=== PATIENT | male | born 1995 | race Caucasian/White ===

== ENCOUNTER 2017-08-20 10:39 | Inpatient (IN) | payer BC, OTHER ==
[~2017-08-20] VITALS: Ht 180.3 cm; Wt 62.1 kg
[2017-08-20] MEDS ORDERED: BUPRENORPHINE HCL 2 MG TAB.SUBL SL PRN (11:30)
[2017-08-20] MEDS ORDERED: DICYCLOMINE HCL 20 MG TABLET PO PRN (11:30)
[2017-08-20] MEDS ORDERED: diphenhydrAMINE 50 MG CAPSULE PO PRN (11:30)
[2017-08-20] MEDS ORDERED: IBUPROFEN 600 MG TABLET PO PRN (11:30)
[2017-08-20] MEDS ORDERED: LOPERAMIDE HCL 2 MG CAPSULE PO PRN ×2 (11:30)
[2017-08-20] MEDS ORDERED: ONDANSETRON ODT 4 MG TAB.RAPDIS SL PRN (11:30)
[2017-08-20] MEDS ORDERED: MIRALAX 17 GM POWD.PACK PO PRN (11:30)
[2017-08-20] MEDS ORDERED: MAG HYDROX/AL HYDROX/SIMETH 30 ML LIQUID UDC PO PRN (11:30)
[2017-08-20] MEDS ORDERED: METHOCARBAMOL 750 MG TABLET PO PRN (11:30)
[2017-08-20] MEDS ORDERED: HYDROXYZINE PAMOATE 25 MG CAPSULE PO PRN (11:30)
[2017-08-20] MEDS ORDERED: ACETAMINOPHEN 325 MG TABLET PO PRN (11:30)
[2017-08-20] MEDS ORDERED: CLONIDINE HCL 0.1 MG TABLET PO PRN (11:30)
[2017-08-20] MEDS ORDERED: ONDANSETRON 4 MG/2 ML VIAL IM PRN (11:30)
[2017-08-20 12:00] VITALS: BP 130/66
--- NOTE | 2017-08-20 12:01 | NUR ---
Preadmission assessment Pt seen in intake, pt is AxOx4, pt states that he is being admitted "to get off of heroin, but I injected a suboxone this morning and it made me instantly sick." Pt states that he has no PMHx and NKA. VS are WNL. BP 130/66 HR 68 R 18 SpO2 98% on RA and a COWS 14. Dr Meza is aware and is going to see pt shortly. Pt refuses to give further medical and substance history at this time, states "I feel horrible, I just want to lay down". Pt is cleared to come to unit.
--- NOTE | 2017-08-20 12:02 | NUR ---
Admission Note Pt was admitted for opiate dependence. 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 Pt VS are: 130/66 HR 68 R 18 SpO2: 98% on RA T 98.4. Pt has a COWS of 14. Dr Meza is aware, pt educated that when he is able to provide urine, medication can be administered per protocol. Pt verbalized his understanding. Pt states that he does not have a PCP, denies any medical history, states that he hasn't been in detox or a hospital within the last 30 days. 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 Pt denies having any allergies. Pt denies any history of seizures. Pt denies any family medical history. pt states that he doesn't take any medications. Pt uses the following substances: heroin- 2-3G IV daily x 3-4 months, last use 08/19/17 at 1600, used a "small amount", has been using heroin on and off x 6 years. suboxone- pt states that he uses it "as needed when I am detoxing myself off of heroin", last used 08/20/17, injected 4mg, states that he immediately started precipitated withdrawal. I started vomiting, had diarrhea, body aches and felt like I was going to ". Methamphetamine- pt states that "I use a few sprinkles on the heroin when I inject it". Been using IV daily x 3-4 months, been using on and off x 6 years. Marijuana- pt states that he "smokes a hit every once in a while" doesn't remember the last use. Treatment history- Pt unable to recall names or places, states "I have been in detox about 6 or more times". Pt states that his longest period of sobriety was for 37 days "a few months ago". Pt oriented to unit, upon verification of medications and when pt is able to provide urine, will medication pt per MD order. Dr Meza has already placed orders and seen pt. Pt is in room, call light within reach, pt has no further complaints at this time. Will continue to monitor pt.
--- NOTE | 2017-08-20 12:03 | NUR ---
Reassessment Pt states that his pain level is 3/10 and that he is comfortable at this time. Will continue to monitor pt. Addendum: 08/20/17 at 1347 by ADELE OROZCO RN Time should be 1237
[2017-08-20] MEDS ORDERED: KETOROLAC TROMETHAMINE 30 MG INJ IM PRN (12:15)
[2017-08-20] MEDS: BUPRENORPHINE HCL 2 MG TAB.SUBL SL SCH ×3 (12:32→21:04)
--- NOTE | 2017-08-20 12:33 | NUR ---
PRN administration Pt c/o body aches 06/10. Administered PRN toradol to RD per MD order. Will continue to monitor pt.
[2017-08-20] MEDS ORDERED: LORAZEPAM 1 MG TABLET PO ONE (13:00)
--- NOTE | 2017-08-20 13:33 | NUR ---
Reassessment of onetime order Pt is currently sleeping, onetime ativan and scheduled subutex were effective in alleviating the discomfort of the pt.
[2017-08-20 14:14] LABS: *AMPHETAMINE, URINE POSITIVE (NEGATIVE); *BARBITURATE, URINE NEGATIVE (NEGATIVE); *CANNABINOID, URINE POSITIVE (NEGATIVE); *COCCAINE, URINE NEGATIVE (NEGATIVE); *OPIATE, URINE POSITIVE (NEGATIVE); *PHENCYCLIDINE SCREEN,URINE NEGATIVE (NEGATIVE)
[2017-08-20 16:00] VITALS: BP 119/44
--- NOTE | 2017-08-20 16:00 | NUR ---
COWS deferred/Pt refused labs COWS deferred, pt is sleeping, pt refused labs, when asked to provide labs, pt covered his head with blanket. Dr Meza notified. Will continue to encourage pt to provide labs.
--- NOTE | 2017-08-20 17:45 | NUR ---
Medication refusal. Pt refused subutex, states "I just want to sleep". Pt stated he would take next dose of subutex. Pt appears restless and uncomfortable, pt continues to state he wants to sleep and pulls blanket over head.
--- NOTE | 2017-08-20 18:48 | NUR ---
End of shift note Pt was admitted for opiate dependence. Pt denies any PMHx or allergies to any medications. Pt is a full code and on a regular diet. Pt refused 1700 dose of subutex d/t wanting to sleep. Pt had a onetime ativan and PRN toradol with effectiveness. Pt ate 50% of lunch and dinner. Pt has no further complaints at this time. Will continue to monitor pt. All needs addressed at this time. SBAR report endorsed to oncoming nurse.
--- NOTE | 2017-08-20 18:48 | NUR ---
START OF SHIFT NOTE: Patient is a 22 year old male admitted to [facility] for Opioid dependence, continue 5 Day Subutex Taper. Patient reports NKA, Regular Diet. Patient is on Full Code, and Fall Precautions. Patient denies Seizures History. PMH: Anxiety, Depression, Substance use History. Patient reports Substance use history: 1."Heroin use via IV 2-3 gram x3-4 months". Last used "1 gram on 08/19/2017 @1600". 2."Suboxone intermittent. Last used 4 mg via IV on 08/20/2017". 3."Methamphetamine - every day sprinkled on heroin via IV during last 3-4 months". 4. "Marijuana uses intermittently. Does not remember last use". VSWNL. COWS 9. Respirations is unlabored and even. Patient denies SOB and chest pain. Lungs Sounds are clear. Patient denies cough. Abdomen is soft, non-tender. Bowel Sounds active in all four quadrants. Skin is intact, warm, and dry to touch. Encouraged to fluids intake as tolerated. Encouraged to attend groups activities. All needs met. Safety measures in place: Call light within reach, bed in low position, and locked, padded rails up bilaterally. Patient endorsed by outgoing day shift nurse. Report received. Will continue to monitor closely.
[2017-08-20 20:00] VITALS: BP 125/69
[2017-08-21] VITALS: BP 118/54
[2017-08-21 04:00] VITALS: BP 94/61
--- NOTE | 2017-08-21 04:24 | NUR ---
PRN ROBAXIN 750 MG 1 TAB PO, PRN VISTARIL 25 MG 1 CAP PO ADMINISTRATION Patient c/o myalgia and increase anxiety. PRN Robaxin 750 mg 1 tab PO for myalgia and PRN Vistaril 25 mg 1 cap PO for anxiety administrated with full glass of water as ordered. Patient tolerated well. All needs met. Safety measures on place. Call light within reach, bed in lowest position and locked, padded rails up bilaterally rails up bilaterally. Will continue to monitor closely.
--- NOTE | 2017-08-21 05:24 | NUR ---
RE-ASSESSMENT Patient is sleeping. Respirations even and unlabored. RR:16. PRN Robaxin 750 mg 1 tab PO for myalgia and PRN Vistaril 25 mg 1 cap PO for anxiety were effective. All needs met. Safety measures on place. Call light within reach, bed in lowest position and locked, padded rails up bilaterally rails up bilaterally. Will continue to monitor closely.
--- NOTE | 2017-08-21 07:10 | NUR ---
END OF SHIFT NOTE: Patient is a 22 year old male admitted to [facility] for Opioid dependence, continue 5 Day Subutex Taper. Patient reports NKA, Regular Diet. Patient is on Full Code, and Fall Precautions. Patient denies Seizures History. PMH: Anxiety, Depression, Substance use History. Patient reports Substance use history: "Heroin use via IV 2-3 gram x3-4 months". Last used "1 gram on 08/19/2017 @1600". "Suboxone intermittent. Last used 4 mg via IV on 08/20/2017". "Methamphetamine - every day sprinkled on heroin via IV during last 3-4 months". "Marijuana uses intermittently. Does not remember last use". Last COWS 7 @0400. Patient presented with anxiety, agitation, nervousness, tremors that can be felt, nasal stuffy, moist eyes, sweating, and restlessness. VS @0400: T: 98.8, BP: 94/61, HR:80, RR:18, RA O2Sat: 98%. Pain level: "0/10". Patient denies SI/HI. Respirations unlabored and even. Skin is intact, warm and dry to touch. PRN Robaxin 750 mg 1 tab PO for myalgia and PRN Vistaril 25 mg 1 cap PO for anxiety administrated @0424 were effective. Patient slept 9 hours, intake 473 ml, voided X1. Encourage fluids as tolerated. Encourage to attend activities groups. All needs met. Safety measures on place. Call light within reach, bed in lowest position and locked, padded rails up bilaterally. Patient endorsed to day shift nurse.
--- NOTE | 2017-08-21 07:15 | NUR ---
Start of Shift Endorsement received from nightshift nurse. Pt is a 22 y/o male admitted for Opiate dependence. Pt is on a 5 day Subutex taper. Pt is tolerating the taper and moderately withdrawing AEB COS 5. Pt reports sleeping 9 hours. PT received PRN Robaxin and Vistaril. VS WNL. Full Code. PT is alert and oriented x4. Pt is in STABLE condition at this time. Remains compliant with medication and diet regimen. All needs have been met, All safety measures in place per hospital policy. Bed in lowest position, side rails up x2, call-light within reach. Will continue to monitor
[2017-08-21 08:00] VITALS: BP 106/50
[2017-08-21] MEDS ORDERED: TUBERCULIN,PURIF.PROT.DERIV. 5 TU/0.1 ML TEST ID ONE (09:00)
[2017-08-21] MEDS: BUPRENORPHINE HCL 2 MG TAB.SUBL SL SCH ×3 (09:04→20:35)
[2017-08-21 12:00] VITALS: BP 102/61
[2017-08-21] MEDS ORDERED: BUPRENORPHINE HCL 2 MG TAB.SUBL SL ONE (12:15)
[2017-08-21 15:01] LABS: BASOPHILS # (AUTO) 0.1 K/uL (0.0-8.0); BASOPHILS % (AUTO) 0.9 % (0.0-2.0); EOSINOPHILS # (AUTO) 0.1 K/uL (0.0-0.7); EOSINOPHILS % (AUTO) 1.7 % (0.0-7.0); HEMATOCRIT 41.8 % (40-50); HEMOGLOBIN 13.7 G/DL (14.0-18.0); LYMPHOCYTES # (AUTO) 2.2 K/UL (0.8-4.8); LYMPHOCYTES % (AUTO) 38.1 % (20.5-74.5); MEAN CORPUSCULAR HEMOGLOBIN 27.4 UUG (27.0-31.0); MEAN CORPUSCULAR HGB CONC 33 g/dL (32.0-37.0); MEAN CORPUSCULAR VOLUME 83.3 FL (82.0-92.0); MONOCYTES # (AUTO) 0.5 K/UL (0.1-1.30); MONOCYTES % (AUTO) 8.4 % (0-11); NEUTROPHILS # (AUTO) 2.9 K/UL (1.8-8.9); NEUTROPHILS % (AUTO) 50.9 % (31.5-64.5); PLATELET COUNT (AUTO) 238 K/UL (150-450); RED BLOOD CELL COUNT(AUTO) 5.02 MIL/UL (4.7-6.1); WHITE BLOOD COUNT (AUTO) 5.8 K/UL (4.0-11.2)
[2017-08-21 15:07] LABS: ALANINE AMINOTRANSFERASE 20 U/L (16-63); ALKALINE PHOSPHATASE 79 U/L (50-136); ASPARTATE AMINOTRANSFERASE 14 U/L (15-37); BILIRUBIN,TOTAL 0.3 mg/dL (0.2-1.0); CARBON DIOXIDE 30 mmol/L (21-32); CHLORIDE 106 mmol/L (98-107); CREATININE 1.2 mg/dL (0.6-1.3); GLUCOSE 91 mg/dL (74-106); MAGNESIUM 1.9 mg/dL (1.8-2.4); POTASSIUM 3.5 mmol/L (3.5-5.1); TOTAL PROTEIN, SERUM 6.8 g/dL (6.4-8.2); UREA NITROGEN, BLOOD 12 mg/dL (7-18)
[2017-08-21 15:31] LABS: ETHANOL < 3 MG/DL (0-0)
[2017-08-21 16:00] VITALS: BP 115/68
--- NOTE | 2017-08-21 19:09 | NUR ---
End of shift Endorsement given to nightshift nurse. Pt is a 22 y/o male admitted for Opiate dependence. Pt is on a 5 day Subutex taper. Pt is tolerating the taper and mildly withdrawing AEB COWS 4. Pt participated in groups but did not participate in any activities. PT received one time order of Subutex 4mg per Dr. Meza. PT did not receive any PRN medications. VS WNL. Full Code. PT is alert and oriented x4. Educated pt on deep breathing technique. Pt is in STABLE condition at this time. Remains compliant with medication and diet regimen. All needs have been met, All safety measures in place per hospital policy. Bed in lowest position, side rails up x2, call-light within reach. Will continue to monitor
--- NOTE | 2017-08-21 19:09 | NUR ---
START OF SHIFT NOTE: Patient is a 22 year old male admitted to [facility] for Opioid dependence, continue 5 Day Subutex Taper. Patient reports NKA, Regular Diet. Patient is on Full Code, and Fall Precautions. Patient denies Seizures History. PMH: Anxiety, Depression, Substance use History. Patient is alert and oriented x4, speech is soft and clear. Patient is cooperative. VSWNL. COWS 7. Respirations is unlabored and even. Patient denies SOB and chest pain. Lungs Sounds are clear. Patient denies cough. Abdomen is soft, non-tender. Bowel Sounds active in all four quadrants. Skin is intact, warm, and dry to touch. Encouraged to fluids intake as tolerated. Encouraged to attend groups activities. All needs met. Safety measures in place: Call light within reach, bed in low position, and locked, padded rails up bilaterally. Patient endorsed by outgoing day shift nurse. Report received. Will continue to monitor closely.
[2017-08-21 20:00] VITALS: BP 122/60
[2017-08-21] MEDS ORDERED: LORAZEPAM 1 MG TABLET PO PRN (21:00)
[2017-08-21] MEDS ORDERED: LORAZEPAM 1 MG TABLET PO ONE (21:00)
[2017-08-21] MEDS ORDERED: LORAZEPAM 1 MG TABLET ONE (21:13)
[2017-08-22] VITALS: BP 103/62
[2017-08-22 04:00] VITALS: BP 101/60
--- NOTE | 2017-08-22 07:07 | NUR ---
END OF SHIFT NOTE: Patient is a 22 year old male admitted to [facility] for Opioid dependence, continue 5 Day Subutex Taper. Patient reports NKA, Regular Diet. Patient is on Full Code, and Fall Precautions. Patient denies Seizures History. PMH: Anxiety, Depression, Substance use History. Last COWS 3 @0400. COWS taken when patient was alert during the night. VS @0400: T: 97.9, BP: 101/60, HR:63, RR:16, RA O2Sat: 100%. Pain level: "0/10". Patient denies SI/HI. Respirations unlabored and even. Skin is intact, warm and dry to touch. No PRN Medications administrated . Patient slept 7 hours, intake 1000 ml, voided X1. Encourage fluids as tolerated. Encourage to attend activities groups. All needs met. Safety measures on place. Call light within reach, bed in lowest position and locked, padded rails up bilaterally. Patient endorsed to day shift nurse.
--- NOTE | 2017-08-22 07:30 | NUR ---
Start of shift note; Received report from night nurse. Patient is a 22 year old male admitted on 08/20/17 for Opiate and Methamphetamine dependence. Patient was placed on a 5 day Subutex taper, no adverse reactions noted. Patient denies any past medical history. Patient has NKA, on full code status. Patient's last COWS score is 3 at 2100. Patient had an uneventful night. Patient is on fall and seizure precaution. Bed in lowest position, call light within reach. Will continue to monitor patient.
[2017-08-22 08:00] VITALS: BP 104/65
[2017-08-22] MEDS ORDERED: GABAPENTIN 300 MG CAPSULE PO SCH (09:00)
[2017-08-22] MEDS ORDERED: BUPRENORPHINE HCL 2 MG TAB.SUBL SL SCH (09:00)
[2017-08-22 09:06] LABS: HEPATITIS B SURFACE AG Negative (Negative)
[2017-08-22 12:00] VITALS: BP 128/72
--- NOTE | 2017-08-22 14:17 | NUR ---
Assumed care of patient
--- NOTE | 2017-08-22 14:17 | NUR ---
Endorsement; Patient is AOX4. Patient remained compliant with treatment plan and medication regime. Medications were effective in reducing withdrawal symptoms. Patient's last COWS score is 5 at 1200. Report given to covering RN.
[2017-08-22] MEDS: GABAPENTIN 400 MG CAPSULE PO SCH ×3 (14:22→21:32)
[2017-08-22] MEDS: BACLOFEN 10 MG TABLET PO SCH ×3 (14:22→21:32)
[2017-08-22] MEDS: BUPRENORPHINE HCL 2 MG TAB.SUBL SL SCH ×2 (14:23→21:32)
--- NOTE | 2017-08-22 14:27 | NUR ---
VSS COWS 4 c/o body aches
[2017-08-22 16:00] VITALS: BP 128/72
--- NOTE | 2017-08-22 18:29 | NUR ---
END OF SHIFT NOTE: Report given to warehouse supervisor 3rd shift nurse. Patient is a 22 year old male admitted on 08/20/17 for Opiate and Methamphetamine dependence. Patient was placed on a 5 day Subutex taper, no adverse reactions noted. Patient denies any past medical history. Patient has NKA, on full code status. Patient's last COWS score is 4 at 1500. Patient had an uneventful night. Patient is on fall and seizure precaution. Bed in lowest position, call light within reach.
--- NOTE | 2017-08-22 19:30 | NUR ---
Start of shift Patient is a 22 year old male admitted on 08-20-17 for opiate detox. Patient is a full code on a regular diet, with NKA. Patient is on fall precautions. His vital signs have remained stable Last COWS 4. Remains on 5 day Subutex taper. Sleeping at change of shift. No complaints offered. Safety measures in place. Call light within reach. Report received from AM shift nurse.
[2017-08-22 20:00] VITALS: BP 101/60
[2017-08-22] MEDS: CLONIDINE HCL 0.1 MG TABLET PO SCH (21:00)
--- NOTE | 2017-08-22 21:35 | NUR ---
Medication Refusal Patient refused baclofen 10 mg , and Neurontin 400 mg at 2100.States he only wants his Subutex. Educated patient on reasons for medications. Patient adamantly refused. Clonidine 0.1 mg PO at 2100 held for BP 101/60.
[2017-08-23] VITALS: BP 104/58
--- NOTE | 2017-08-23 | NUR ---
COWS DEFERRED 0000 COWS deferred for sleep
--- NOTE | 2017-08-23 04:17 | NUR ---
VITAL SIGNS REFUSED. COWS DEFERRED 0400 vital signs refused. COWS deferred patient resting in bed, eyes closed, breathing even and unlabored. Respirations 16.
--- NOTE | 2017-08-23 06:53 | NUR ---
End of shift Patient is a 22 year old male admitted on 08-20-17 for opiate detox. Patient is a full code on a regular diet, with NKA. Patient is on fall precautions. Remains on 5 day Subutex taper. Vital signs at 2000 BP 101/60, P 74, R 18, T 98.1, SPO2 99% on RA. COWS 3. Patient refused Baclofen 10 mg PO at 2100 as well as Neurontin 400 mg PO at 2100. States he is only taking his Subutex, despite education. Patient clonidine 0.1 mg PO held at 2100 for BP. Vital signs at 0000 BP 104/58, P 70, R 16, SPO2 99% on RA, T 98.1. COWS deferred for sleep. Patient slept a total of 7 hours. Intake 1038 ml Output 3 voids. Call light within reach. Report given to AM shift nurse.
[2017-08-23 08:00] VITALS: BP 134/67
--- NOTE | 2017-08-23 08:05 | NUR ---
START OF SHIFT NOTE Received report from night nurse, 22 year old male admitted for Opiate and Methamphetamine dependence. Patient cont on a 5 day Subutex. Patient denies any PMH. Per endorsement Pt refused his scheduled Baclofen gabapentin, and Clonidine was held, slept for 7 hours, last COWS was 3. Patient received awake, alert and oriented x4, Educated patient regarding plan of care for the day and medication regimen with good verbal understanding. Safety measures in place. call light with in reach, will continue to monitor.
[2017-08-23] MEDS: BACLOFEN 10 MG TABLET PO SCH ×3 (09:00→20:01)
[2017-08-23] MEDS: GABAPENTIN 400 MG CAPSULE PO SCH ×3 (09:00→20:02)
[2017-08-23] MEDS: CLONIDINE HCL 0.1 MG TABLET PO SCH ×2 (09:00→20:01)
--- NOTE | 2017-08-23 09:00 | NUR ---
REFUSED CLONIDINE/BACLOFEN/GABAPENTIN Patient refused baclofen 10 mg , and Neurontin 400 mg,Clonidine 0.1mg Po. Educated patient on reasons for medications and offered x. Risk and benefits explained, but Patient refused, MD notified.
[2017-08-23] MEDS: BUPRENORPHINE HCL 2 MG TAB.SUBL SL SCH ×3 (09:13→20:00)
[2017-08-23 12:00] VITALS: BP 104/74
[2017-08-23 16:00] VITALS: BP 116/62
--- NOTE | 2017-08-23 19:00 | NUR ---
END OF SHIFT NOTE Patient is alert oriented x4. 22 year old male admitted for Opiate and Methamphetamine dependence. Patient cont on a 5 day Subutex tolerating well. Patient refused his scheduled Clonidine, Gabapentin, Baclofen morning and at afternoon baclofen/gabapentin offered x3 risk and benefits explained pt verbalized understanding. MD notified. Patient did not receive any PRN during shift. Skin intact warm and dry to touch. Last COWS score was 4. Encourage Po fluids as tolerated. All safety measures in place, Call light within reach. Patient endorsed to night nurse in stable condition.
[2017-08-23 20:04] VITALS: BP_SYST 110; BP_DIAS 56; BP_DIAS 60
--- NOTE | 2017-08-23 20:41 | NUR ---
Start of shift Patient is a 22 year old male admitted on 08-20-17 for opiate detox. Patient is a full code on a regular diet, with NKA. Patient is on fall precautions. His vital signs have remained stable Last COWS 4 at 1600 . Remains on 5 day Subutex taper. No complaints offered. Safety measures in place. Call light within reach. Report received from AM shift nurse.
--- NOTE | 2017-08-23 21:00 | NUR ---
Medication Refusal Patient refused baclofen 10 mg , Neurontin 400 mg, and clonidine 0.1 mg at 2100. States he only wants his Subutex. Educated patient on reasons for medications. Patient adamantly refused.
--- NOTE | 2017-08-24 | NUR ---
COWS deferred/VS refused Patient refused 0000 vital signs. COWS deferred due to sleep
--- NOTE | 2017-08-24 04:00 | NUR ---
COWS deferred/VS refused Patient refused 0400 vital signs. COWS deferred due to sleep
--- NOTE | 2017-08-24 06:52 | NUR ---
End of shift Patient is a 22 year old male admitted on 08-20-17 for opiate detox. Patient is a full code on a regular diet, with NKA. Patient is on fall precautions. He remains on a 5 day Subutex taper. Vital signs at 1999 BP BP 110/60, P 81, R 18, SPO2 98% on RA, T 98.1. COWS 5. Patient refused Baclofen 10 mg PO at 2100, Neurontin 400 mg PO at 2100, and Clonidine 0.1 mg PO at 2100. States he is only taking his Subutex, despite education. Patient refused 0000 and 0400 VS, COWS deferred for sleep. Patient slept a total of 6 hours. Intake 855 ml Output 2 voids. Call light within reach. Report given to AM shift nurse.
--- NOTE | 2017-08-24 06:54 | NUR ---
End of shift Patient is a 61 year old female admitted on 08-19-17 for Alcohol detox. Patient has PMH of HTN. She has NKA, is a full code and on a regular diet. She is on fall and seizure precautions. She is on a 5 day Ativan taper. Tolerating diet and fluids. CIWA 2 at 1999. Vital signs at 1999 BP 139/99, P 94, SPO2 97% RA, T 98.0, R 16. Patient received citrate of magnesium 296 ml at 2054 for constipation with no effect as of late. Patient received Benadryl 50 mg PO at 2051 with good effect. Patient received Motrin 400 mg PO at 2300 for generalized pain with good effect. VS at 0000 BP98/63, P 80, R 13, SPO2 96% on RA, T 98.3 CIWA deferred for sleep. 0400 VS BP 110/68, P 68, R 16, SPO2 96% on RA CIWA deferred for sleep. Patient slept a total of 7 hours, Intake 1800 ml output 3 voids. Safety measures in place. Side rails up x 2. Call light within reach. Bed Locked and in lowest position. Report given to AM shift nurse. Addendum: 08/24/17 at 0656 by HAZEL EM RN documented in wrong chart
--- NOTE | 2017-08-24 07:33 | NUR ---
START OF SHIFT NOTE Received report from night nurse, 22 year old male admitted for Opiate and Methamphetamine dependence. Patient cont on a 5 day Subutex. Patient denies any PMH. Per endorsement Pt refused his scheduled Baclofen gabapentin, and Clonidine, slept for 6 hours, last COWS was 5. Patient received awake, alert and oriented x4, Educated patient regarding plan of care for the day and medication regimen with good verbal understanding. Safety measures in place. call light with in reach, will continue to monitor.
[2017-08-24 08:00] VITALS: BP 115/66
[2017-08-24] MEDS: GABAPENTIN 300 MG CAPSULE PO SCH ×2 (08:26→14:03)
[2017-08-24] MEDS ORDERED: BUPRENORPHINE HCL 2 MG TAB.SUBL SL SCH (09:00)
[2017-08-24 12:00] VITALS: BP 128/60
[2017-08-24 16:00] VITALS: BP 122/76
[2017-08-24] MEDS ORDERED: METH-406 PO (16:24)
[2017-08-24] MEDS ORDERED: HYDR-3895 PO (16:24)
[2017-08-24] MEDS ORDERED: DICY20TA28 PO (16:24)
[2017-08-24] MEDS ORDERED: DIPH50CA37 PO (16:24)
[2017-08-24] MEDS ORDERED: IBUP-1955 PO (16:24)
--- NOTE | 2017-08-24 18:59 | NUR ---
END OF SHIFT NOTE Patient is alert oriented x4. 22 year old male admitted for Opiate and Methamphetamine dependence. Patient cont on a 5 day Subutex tolerating well. Patient refused his scheduled Clonidine,Gabapentin, Baclofen morning and at afternoon gabapentin offered x3 risk and benefits explained pt verbalized understanding. MD notified. Patient did not receive any PRN during shift. Skin intact warm and dry to touch. Last COWS score was 3. Patient scheduled for discharge in AM. Encourage Po fluids as tolerated. All safety measures in place, Call light within reach. Patient endorsed to night nurse in stable condition. Addendum: 08/24/17 at 1907 by LINDA GREENFIELD LVN ERROR PT completed his 5 days Subutex taper.
[2017-08-24 20:00] VITALS: BP 112/60
--- NOTE | 2017-08-24 20:00 | NUR ---
Start of Shift Pt is a 22 year old male admitted for Opiate dependence, placed on 5 Subutex taper, completed. Pt denies any past medication history. Pt reported consuming [place] IV 2-3g daily and Suboxone intermittently. Pt also reported use of Methamphetamine and Marijuana. NKA, regular diet, fall precautions and full code. Upon assessment, pt reports mild body aches, respirations even/unlabored, denies SOB/chest pain, denies n/v/d. Pt is scheduled for discharge tomorrow. Safety measures in place, call light within reach, side rails up x2, bed locked and in low position. Will continue to monitor.
--- NOTE | 2017-08-25 | NUR ---
Pt refused to be woken up for 0000 VS assessment. COWS deferred due to pt sleeping, to assess while pt is awake as ordered. Safety measures in place. Will continue to monitor.
--- NOTE | 2017-08-25 04:00 | NUR ---
Pt refused to be woken up for 0400 VS assessment. COWS deferred due to pt sleeping, to assess while pt is awake as ordered. Safety measures in place. Will continue to monitor. 0
--- NOTE | 2017-08-25 07:00 | NUR ---
End of Shift Pt is a 22 year old male admitted for Opiate dependence, placed on 5 Subutex taper, completed. Pt denies any past medication history. Pt reported consuming [place] IV 2-3g daily and Suboxone intermittently. Pt also reported use of Methamphetamine and Marijuana. NKA, regular diet, fall precautions and full code. During shift, No medications administered, or requested by pt. Latest COWS 1. Pt slept for 8 hours, intake of 1000 ml PO, voids x2 and stool x0. Pt is scheduled for discharge today. Safety measures in place, call light within reach, side rails up x2, bed locked and in low position. Endorsed to day shift nurse.
--- NOTE | 2017-08-25 07:38 | NUR ---
START OF SHIFT NOTE: Received report from weight shifter nurse. Pt is a 22 year old male admitted for Opiate dependence, placed on 5 Subutex taper, completed. To be discharged this AM. Pt is alert and oriented X4. Color good, skin warm and dry. Resprations even and unlabored. Safety precautions observed. Call light within reach.
[2017-08-25 08:40] VITALS: BP 122/78
--- NOTE | 2017-08-25 08:47 | NUR ---
Discharge papers signed. No home meds.
--- NOTE | 2017-08-25 09:33 | NUR ---
Pt discharged in stable condition with all valuables and belongings. No home meds. Denies SI/HI. To Able to Change via [employer] private car.
== END 2017-08-25 09:33 | disposition other institution (70) | DRG 895 ==
LOC: SRC 11:23
PROVIDERS: ADMIT Internal Medicine; ATTEND Internal Medicine
PROC: HZ2ZZZZ Detoxification Services for Substance Abuse Treatment (ICD-10-PCS; principal; 2017-08-20)
PROC: HZ31ZZZ Individual Counseling for Substance Abuse Treatment, Behavioral (ICD-10-PCS; 2017-08-23)
DX: F11.23 Opioid dependence with withdrawal (principal); D64.9 Anemia, unspecified; F12.10 Cannabis abuse, uncomplicated; F17.210 Nicotine dependence, cigarettes, uncomplicated; F41.9 Anxiety disorder, unspecified; F15.23 Other stimulant dependence with withdrawal; Z59.1 Inadequate housing; F32.9 Major depressive disorder, single episode, unspecified
CPT/HCPCS: 36415; 80307; 80324; 80349; 80361; 83735; 85025; 86592; 86705; 86803; 87340; 87806; A4663; G0480; J1885

== ENCOUNTER 2017-09-24 23:19 | Inpatient (IN) | payer BC, OTHER ==
[~2017-09-24] VITALS: Ht 182.9 cm; Wt 59.0 kg
[~2017-09-24 23:19] MED LIST: DICY20TA28 PO; DIPH50CA37 PO; HYDR-3895 PO; IBUP-1955 PO; METH-406 PO
[2017-09-25] MEDS ORDERED: ONDANSETRON ODT 4 MG TAB.RAPDIS SL PRN (00:15)
[2017-09-25] MEDS ORDERED: LORAZEPAM 1 MG TABLET PO PRN (00:15)
[2017-09-25] MEDS ORDERED: MIRALAX 17 GM POWD.PACK PO PRN (00:15)
[2017-09-25] MEDS ORDERED: IBUPROFEN 600 MG TABLET PO PRN (00:15)
[2017-09-25] MEDS ORDERED: CLONIDINE HCL 0.1 MG TABLET PO PRN (00:15)
[2017-09-25] MEDS ORDERED: ONDANSETRON 4 MG/2 ML VIAL IM PRN (00:15)
[2017-09-25] MEDS ORDERED: BUPRENORPHINE HCL 2 MG TAB.SUBL SL PRN (00:15)
[2017-09-25] MEDS ORDERED: LOPERAMIDE HCL 2 MG CAPSULE PO PRN ×2 (00:15)
[2017-09-25] MEDS ORDERED: DICYCLOMINE HCL 20 MG TABLET PO PRN (00:15)
[2017-09-25] MEDS ORDERED: MAGNESIUM HYDROXIDE 30 ML LIQUID UDC PO PRN (00:15)
[2017-09-25] MEDS ORDERED: METHOCARBAMOL 750 MG TABLET PO PRN (00:15)
[2017-09-25] MEDS ORDERED: ACETAMINOPHEN 325 MG TABLET PO PRN (00:15)
--- NOTE | 2017-09-25 00:25 | NUR ---
Pre-Admission Pt is a 22 y/o male, seen at intake, AAOx4, no SOB with anxiety noted at this time. Discussed with patient the admission policies of the unit. Patient is coherent and able to respond to questions appropriately. Pt is ambulatory with steady gait. Vital signs taken and as follows: BP: 120/57, P: 85, R: 17, O2: 97%, T: 98, PA: 0. Pt verbalized understanding of instructions and teachings regarding disposal of narcotic and other controlled home medications, unit protocols such as taking of vital signs Q4H and handling and disposal of contraband. Will continue with admission upon pts arrival on the unit.
[2017-09-25 00:37] VITALS: BP 120/57
--- NOTE | 2017-09-25 00:37 | NUR ---
Admission Note Pt is a 22 y/o male admitted on 09/25/17 for Opiate dependence, arrived on the unit at 0037. Pt has NKA, denies history of seizures. Pt was able to provide UDS. Upon admission COWS 4, BP: 120/57, P: 85, R: 17, O2: 97%, T: 98, PA: 0. Weight 130, height 60. Pt reports he does not have a PCP, smokes 1 pack daily, denies being hospitalized within past 30 days. Pt is able to understand and respond to all questions pertaining to his hospitalization. Substance Abuse History is as follows: 1. Heroin IV 2-6g/daily, last intake of 0.5g on 09/24/17, at this rate for 8 weeks, has been using since age 15. 2. Marijuana 1-2g/daily, last intake of 1 bowl on 09/24/2017, at this rate for 8 weeks, has been using since age 15. Pt relapsed 8 weeks ago after discharge from [facility] on August 20, 2017. Pt reports he relapsed "as soon as I got out of here". Pts longest sober period for 87 days in 2017, per pt. Pt reports "my father is an alcoholic, but I don't talk to him" Pt denies any other family history of substance abuse. PMH: Anxiety, depression. Pt denies any hx of seizures. Pt did not bring any medications from home. Upon assessment, pt is AAOx4, pt is mildly intoxicated, presents with anxiety, skin is flushed, and has mild body aches. Respirations even and unlabored. Denies SOB, chest pain, N/V/D. Bowel sounds active x 4, abdomen soft. PERRLA. Track keyshawn noted on right elbow area, skin is otherwise intact, no open wounds noted. Pt denies SI/HI. Educational information provided and left at bedside. Pt oriented to room and encouraged to notify staff with any concerns. Safety measures in place. Call light within reach, side rails up x 2, bed locked and in low position. Will continue to monitor.
[2017-09-25] MEDS ORDERED: LORAZEPAM 1 MG TABLET PO ONE (01:15)
[2017-09-25 01:49] LABS: BASOPHILS # (AUTO) 0.1 K/uL (0.0-8.0); BASOPHILS % (AUTO) 1.5 % (0.0-2.0); EOSINOPHILS # (AUTO) 0.2 K/uL (0.0-0.7); HEMATOCRIT 44.1 % (40-50); HEMOGLOBIN 14.9 G/DL (14.0-18.0); LYMPHOCYTES # (AUTO) 2.1 K/UL (0.8-4.8); LYMPHOCYTES % (AUTO) 23.5 % (20.5-74.5); MEAN CORPUSCULAR HEMOGLOBIN 28.4 UUG (27.0-31.0); MEAN CORPUSCULAR HGB CONC 34 g/dL (32.0-37.0); MONOCYTES # (AUTO) 0.6 K/UL (0.1-1.30); MONOCYTES % (AUTO) 6.8 % (0-11); NEUTROPHILS % (AUTO) 66.2 % (31.5-64.5); PLATELET COUNT (AUTO) 308 K/UL (150-450); RED BLOOD CELL COUNT(AUTO) 5.25 MIL/UL (4.7-6.1)
[2017-09-25 01:56] LABS: ETHANOL < 3 MG/DL (0-0)
[2017-09-25 02:01] LABS: ALANINE AMINOTRANSFERASE 38 U/L (16-63); ALKALINE PHOSPHATASE 101 U/L (50-136); ASPARTATE AMINOTRANSFERASE 26 U/L (15-37); BILIRUBIN,TOTAL 0.3 mg/dL (0.2-1.0); CARBON DIOXIDE 30 mmol/L (21-32); CHLORIDE 101 mmol/L (98-107); CREATININE 0.8 mg/dL (0.6-1.3); GLUCOSE 100 mg/dL (74-106); MAGNESIUM 2.1 mg/dL (1.8-2.4); TOTAL PROTEIN, SERUM 7.8 g/dL (6.4-8.2); UREA NITROGEN, BLOOD 15 mg/dL (7-18)
[2017-09-25] MEDS ORDERED: LORAZEPAM 1 MG TABLET ONE (02:04)
[2017-09-25 02:11] LABS: *AMPHETAMINE, URINE NEGATIVE (NEGATIVE); *BARBITURATE, URINE NEGATIVE (NEGATIVE); *CANNABINOID, URINE POSITIVE (NEGATIVE); *COCCAINE, URINE NEGATIVE (NEGATIVE); *OPIATE, URINE POSITIVE (NEGATIVE); *PHENCYCLIDINE SCREEN,URINE NEGATIVE (NEGATIVE)
--- NOTE | 2017-09-25 02:16 | NUR ---
PRN Administration Ativan 2mg x1 administered for anxiety as ordered. Safety measures in place, will continue to monitor.
--- NOTE | 2017-09-25 03:16 | NUR ---
PRN Reassessment Upon reassessment, pt is in bed, sleeping, respirations even/unlabored. Safety measures in place, will continue to monitor.
[2017-09-25 04:00] VITALS: BP 126/59
--- NOTE | 2017-09-25 04:00 | NUR ---
COWS deferred d/t pt sleeping, to asses while pt is awake as ordered. BP 126/59, pulse 68, resp 18, SpO2 97% room air, temp 98.1, no pain 0/[address], will continue to monitor.
--- NOTE | 2017-09-25 07:00 | NUR ---
End of Shift Pt is a 22 year old male admitted for Opiate dependence. Pt reported using Heroin IV 2-6g/daily for the past 8 weeks and Marijuana 1-2g/daily for the past 8 weeks. PMH: anxiety and depression. NKA, regular diet, fall precautions and full code. During shift, COWS 4, Ativan 2mg x1 administered for anxiety as ordered. No other PRN medications administered during shift. Pt slept for 5 hours, intake of 500 ml PO, voids x1 and stool x0. Safety measures in place, call light within reach, side rails up x2, bed locked and in low position. Endorsed to day shift nurse.
--- NOTE | 2017-09-25 07:35 | NUR ---
START OF SHIFT NOTE: Received report from shift superintendent caustic cresylate nurse. Pt is a 22 year old male admitted 09-25-17 for Opiate dependence. Pt on prn's only. Pt is alert and oriented X4. Color good, skin warm and dry. Respirations even and unlabored. Safety precautions observed. Vall light within reach. Will continue to monitor.
[2017-09-25 08:18] VITALS: BP 126/59
[2017-09-25 12:00] VITALS: BP 122/72
--- NOTE | 2017-09-25 12:22 | NUR ---
Pt woke up stating "I'm so sick" COWS 14. Subutex 4mg sl prn given
--- NOTE | 2017-09-25 13:09 | NUR ---
Pt states "I still feel sick" after Subutex prn
--- NOTE | 2017-09-25 13:25 | NUR ---
Robaxin 750mg po prn and Clonidine 0.1mg for muscle aches and anxiety
[2017-09-25] MEDS: BUPRENORPHINE HCL 2 MG TAB.SUBL SL SCH ×2 (14:01→21:18)
[2017-09-25] MEDS: GABAPENTIN 300 MG CAPSULE PO SCH ×2 (14:01→21:17)
--- NOTE | 2017-09-25 14:03 | NUR ---
VSS COWS 6 states feels improved after Robaxin and Clonidine prn
[2017-09-25 17:05] VITALS: BP 122/72
--- NOTE | 2017-09-25 18:27 | NUR ---
END OF SHIFT NOTE: Report given to shift stacker nurse. Pt is a 22 year old male admitted 09-25-17 for Opiate dependence. Pt placed on 5 day Subutex taper. Pt is alert and oriented X4. Color good, skin warm and dry. Respirations even and unlabored. Vital signs have remained stable throughout shift. Pt received Robaxin 750mg po prn and Clonidine 0.1mg po prn @ 1325. Last COWS 6 @ 1500. Safety precautions observed. Call light within reach.
--- NOTE | 2017-09-25 19:15 | NUR ---
START OF SHIFT NOTE : Pt. is a 22 year old male admitted 09-25-17 for Opiate dependence. Pt placed on 5 day Subutex taper on 09/25/2017. Pt is alert and oriented X4. Color good, skin warm and dry. Respirations even and unlabored. Safety measures in place : bed on lowest position with side rails x2 up for safety, call light within reach. Will continue to monitor closely and offer help.
[2017-09-25 20:00] VITALS: BP 119/72
--- NOTE | 2017-09-25 21:00 | NUR ---
PRN BENADRYL , VISTARYL Pt. complains of increased level of anxiety, sleeplessness. PRN BENADRYL , VISTARYL given as ordered. Safety measures in place : bed on lowest position with side rails x2 up for safety, call light within reach. Will continue to monitor closely and offer help.
[2017-09-25] MEDS: HYDROXYZINE PAMOATE 25 MG CAPSULE PO PRN (21:17)
[2017-09-25] MEDS: diphenhydrAMINE 50 MG CAPSULE PO PRN (21:17)
--- NOTE | 2017-09-25 22:00 | NUR ---
RE-ASSESSMENT ARIADNE CASTAÑEDA Pt. is sleeping, RR=16, unlabored and even . Safety measures in place : bed on lowest position with side rails x2 up for safety, call light within reach. Will continue to monitor closely and offer help.
[2017-09-26 04:00] VITALS: BP 101/56
--- NOTE | 2017-09-26 06:55 | NUR ---
END OF SHIFT NOTE : Pt. is a 22 year old male admitted 09-25-17 for Opiate dependence. Pt placed on 5 day Subutex taper on 09/25/2017. Pt is alert and oriented X4. Color good, skin warm and dry. Pt remains compliant with the treatment plan. PRN BENADRYL, VISTARIL were given during my shift. V/S remain WNL. RR=16, even and unlabored, lungs clear upon auscultation, abdomen soft and non- distended. Pt denies nausea, vomiting and diarrhea. COWS taken when pt. was alert during the night, LAST COWS=5 at 0400 , RLUAAA=097 ml, voided x1 , slept 3 hours. Safety measures in place : bed on lowest position with side rails x2 up for safety, call light within reach. Will continue to monitor closely and offer help.
--- NOTE | 2017-09-26 07:40 | NUR ---
START OF SHIFT NOTE: Received report from night club manager nurse. Pt is a 22 year old male admitted 09-25-17 for Opiate dependence. Pt is on a 5 day Subutex taper. Tolerating well.. Pt is alert and oriented X4. Color good, skin warm and dry. Respirations even and unlabored. Safety precautions observed. Call light within reach. Will continue to monitor.
[2017-09-26 08:00] VITALS: BP 101/56
[2017-09-26] MEDS ORDERED: TUBERCULIN,PURIF.PROT.DERIV. 5 TU/0.1 ML TEST ID ONE (09:00)
[2017-09-26] MEDS ORDERED: BUPRENORPHINE HCL 2 MG TAB.SUBL SL SCH (09:00)
[2017-09-26 09:09] LABS: HEPATITIS B SURFACE AG Negative (Negative)
[2017-09-26] MEDS: GABAPENTIN 300 MG CAPSULE PO SCH ×2 (09:55→14:21)
--- NOTE | 2017-09-26 09:57 | NUR ---
VSS COWS 11 c/o body aches, sweating, anxiety states "everything hurts."
[2017-09-26 12:56] VITALS: BP 110/68
[2017-09-26] MEDS: BUPRENORPHINE HCL 2 MG TAB.SUBL SL SCH ×3 (13:31→21:11)
[2017-09-26 16:00] VITALS: BP 114/68
--- NOTE | 2017-09-26 16:50 | NUR ---
Therapist prompted client about group times. Client stated he didn't attend groups today because he wanted to rest.
--- NOTE | 2017-09-26 17:00 | NUR ---
VSS COWS 8 c/o sweating, body aches, anxiety.
--- NOTE | 2017-09-26 18:40 | NUR ---
END OF SHIFT NOTE: Report given to steward/stewardess night nurse. Pt is a 22 year old male admitted 09-25-17 for Opiate dependence. Pt is on a 5 day Subutex taper. Tolerating well. Pt is alert and oriented X4. Color good, skin warm and dry. Respirations even and unlabored. Vital signs have remained stable throughout shift. Last COWS 8 @ 1700. No prns given Safety precautions observed. Call light within reach.
--- NOTE | 2017-09-26 19:15 | NUR ---
START OF SHIFT NOTE : Pt. is a 22 year old male admitted 09-25-17 for Opiate dependence. Pt placed on 5 day Subutex taper on 09/25/2017. Pt is alert and oriented X4. Color good, skin warm and dry. Respirations even and unlabored. Pt. participates in activities/meetings . VS will be taken once a day per MD order. Safety measures in place : bed on lowest position with side rails x2 up for safety, call light within reach. Will continue to monitor closely and offer help.
[2017-09-26] MEDS ORDERED: GABAPENTIN 300 MG CAPSULE PO SCH (21:00)
[2017-09-26] MEDS ORDERED: CLONIDINE HCL 0.1 MG TABLET PO ONE (21:00)
[2017-09-26] MEDS ORDERED: LORAZEPAM 1 MG TABLET PO ONE (21:00)
[2017-09-26] MEDS: HYDROXYZINE PAMOATE 25 MG CAPSULE PO PRN (21:10)
[2017-09-26] MEDS ORDERED: LORAZEPAM 1 MG TABLET ONE (21:49)
[2017-09-26] MEDS ORDERED: CLONIDINE HCL 0.1 MG TABLET ONE (21:50)
--- NOTE | 2017-09-27 06:22 | NUR ---
END OF SHIFT NOTE : Pt. is a 22 year old male admitted 09-25-17 for Opiate dependence. Pt placed on 5 day Subutex taper on 09/25/2017 Pt remains compliant with the treatment plan. PRN BENADRYL, VISTARIL were given during my shift. V/S remain WNL. RR=16, even and unlabored, lungs clear upon auscultation, abdomen soft and non- distended. Pt denies nausea, vomiting and diarrhea. COWS taken when pt. was alert during the night, LAST COWS= 3 at 0400 , INTAKE= 855 ml, voided x 2, slept 5 hours. Safety measures in place : bed on lowest position with side rails x2 up for safety, call light within reach. Will continue to monitor closely and offer help.
[2017-09-27 08:00] VITALS: BP 117/63
[2017-09-27] MEDS ORDERED: BUPRENORPHINE HCL 2 MG TAB.SUBL SL SCH ×2 (09:00→15:00)
[2017-09-27] MEDS: GABAPENTIN 300 MG CAPSULE PO SCH ×3 (09:57→21:07)
[2017-09-27] MEDS: BUPRENORPHINE HCL 2 MG TAB.SUBL SL SCH ×3 (09:57→21:08)
--- NOTE | 2017-09-27 12:00 | NUR ---
Nursing note Unable to assess 1200 COWS. Pt is lying in bed resting with eyes closed. Respirations even and unlabored. Safety measures in place.
[2017-09-27 14:55] VITALS: BP 110/62
--- NOTE | 2017-09-27 16:00 | NUR ---
Nursing Note Pt refused 1600 vital signs. Educated pt regarding importance of obtaining vital signs for safety. He continued to refuse.
--- NOTE | 2017-09-27 19:15 | NUR ---
START OF SHIFT NOTE : Pt. is a 22 year old male admitted 09-25-17 for Opiate dependence. Pt placed on 5 day Subutex taper on 09/25/2017. Pt is alert and oriented X4. Color good, skin warm and dry. Pt. is socializing with other clients, is friendly and cooperative. Safety measures in place : bed on lowest position with side rails x2 up for safety, call light within reach. Will continue to monitor closely and offer help.
--- NOTE | 2017-09-27 19:18 | NUR ---
END OF SHIFT Report provided to day shift nurse. Pt is a 22 yo male admitted to the [facility] on 09/25 for heroin dependence. He is A&O and ambulatory. NKA, full code status, on a regular diet. Pt is lying in bed resting with respirations even and unlabored. PMH of anxiety and depression. On admission pt reported using heroin 2-6 grams per day for 8 weeks and marijuana. 5 day Subutex taper started 09/25. He slept for the first half of the day. He is agitated and short tempered when awake. Last COWS 4. No PRN medications administered. He drank 1989mL. Fall and seizure precautions in place. Bed is down with call light in reach.
--- NOTE | 2017-09-27 21:00 | NUR ---
PRN BENADRYL , VISTARYL , ZOFRAN SL Pt. complains of increased level of anxiety, sleeplessness, nausea. PRN BENADRYL , VISTARYL, ZOFRAN given as ordered. Safety measures in place : bed on lowest position with side rails x2 up for safety, call light within reach. Will continue to monitor closely and offer help.
[2017-09-27] MEDS: diphenhydrAMINE 50 MG CAPSULE PO PRN (21:06)
[2017-09-27] MEDS: HYDROXYZINE PAMOATE 25 MG CAPSULE PO PRN (21:06)
[2017-09-27] MEDS: BACLOFEN 10 MG TABLET PO SCH (21:06)
[2017-09-27] MEDS: CLONIDINE HCL 0.1 MG TABLET PO SCH (21:12)
--- NOTE | 2017-09-27 22:00 | NUR ---
RE-ASSESSMENT ARIADNE CASTAÑEDA ZOFRAN Pt. is sleeping, RR=16, unlabored and even . Safety measures in place : bed on lowest position with side rails x2 up for safety, call light within reach. Will continue to monitor closely and offer help.
--- NOTE | 2017-09-28 06:39 | NUR ---
END OF SHIFT NOTE : Pt. is a 22 year old male admitted 09-25-17 for Opiate dependence. Pt placed on 5 day Subutex taper on 09/25/2017 Pt remains compliant with the treatment plan. PRN BENADRYL, VISTARIL, ZOFRAN were given during my shift. Pt. was awake after 04:00, restless , unpolite, used f words, asked for warm food , wanted talk to MD. RR=16, even and unlabored, lungs clear upon auscultation, abdomen soft and non- distended. Pt denies nausea, vomiting and diarrhea at this time.. COWS taken when pt. was alert during the night, LAST COWS= 4 at 0400 , INTAKE=2,332 ml, voided x4 , slept 8 hours. Safety measures in place : bed on lowest position with side rails x2 up for safety, call light within reach. Will continue to monitor closely and offer help.
--- NOTE | 2017-09-28 07:50 | NUR ---
START OF SHIFT Received report from manager night nurse. Pt is a 22 yo male admitted to [facility] on 09/25 for opiate dependence. He is lying in bed resting. Breathing even and unlabored. He is A&O and ambulatory. NKA, full code status, on a regular diet. He has a PMH of anxiety and depression. On admission pt reported using heroin 2-6 grams per day and marijuana. 5 day Subutex taper started 09/26. Fall and seizure precautions in place. Bed is down with call light in reach.
[2017-09-28 08:00] VITALS: BP 117/80
[2017-09-28] MEDS ORDERED: BUPRENORPHINE HCL 2 MG TAB.SUBL SL SCH ×2 (09:00)
[2017-09-28] MEDS: CLONIDINE HCL 0.1 MG TABLET PO SCH ×3 (09:59→21:32)
[2017-09-28] MEDS: GABAPENTIN 300 MG CAPSULE PO SCH ×2 (09:59→14:41)
[2017-09-28] MEDS: BACLOFEN 10 MG TABLET PO SCH (09:59)
[2017-09-28 12:00] VITALS: BP 110/72
[2017-09-28] MEDS: BACLOFEN 20 MG TABLET PO SCH ×2 (14:41→21:32)
[2017-09-28] MEDS: BUPRENORPHINE HCL 2 MG TAB.SUBL SL SCH ×2 (14:41→21:33)
[2017-09-28] MEDS ORDERED: KETOROLAC TROMETHAMINE 30 MG INJ IM PRN (19:15)
--- NOTE | 2017-09-28 19:15 | NUR ---
START OF SHIFT NOTE : Pt. is a 22 year old male admitted 09-25-17 for Opiate dependence. Pt placed on 5 day Subutex taper on 09/25/2017. Pt is alert and oriented X4. Color good, skin warm and dry. Pt. is resting in the room, is on room restriction per MD order. Safety measures in place : bed on lowest position with side rails x2 up for safety, call light within reach. Will continue to monitor closely and offer help.
--- NOTE | 2017-09-28 19:25 | NUR ---
END OF SHIFT Report provided to manager shift nurse. Pt is a 22 yo male admitted to [facility] on 09/25 for opiate dependence. Pt is lying in bed resting. Breathing even and unlabored. He is A&O and ambulatory. NKA, full code status, on a regular diet. He has a PMH of anxiety and depression. On admission pt reported using heroin 2-6 grams per day and marijuana. 5 day Subutex taper started 09/26. He reports body aches, chills, anxiety, and restlessness throughout the day. Last COWS 5 and he drank 1710 Fall and seizure precautions in place. Bed is down with call light in reach.
[2017-09-28] MEDS ORDERED: GABAPENTIN 300 MG CAPSULE PO SCH (21:00)
--- NOTE | 2017-09-28 21:00 | NUR ---
PRN BENADRYL , VISTARIL Pt. complains of increased level of anxiety, sleeplessness. PRN BENADRYL , VISTARIL given as ordered. Safety measures in place : bed on lowest position with side rails x2 up for safety, call light within reach. Will continue to monitor closely and offer help.
[2017-09-28] MEDS: diphenhydrAMINE 50 MG CAPSULE PO PRN (21:31)
[2017-09-28] MEDS: HYDROXYZINE PAMOATE 25 MG CAPSULE PO PRN (21:32)
--- NOTE | 2017-09-28 22:00 | NUR ---
RE-ASSESSMENT BETI CASTAÑEDA Pt. is sleeping, RR=16, unlabored and even . Safety measures in place : bed on lowest position with side rails x2 up for safety, call light within reach. Will continue to monitor closely and offer help.
--- NOTE | 2017-09-29 06:58 | NUR ---
END OF SHIFT NOTE : Pt. is a 22 year old male admitted 09-25-17 for Opiate dependence. Pt placed on 5 day Subutex taper on 09/25/2017. Pt remains compliant with the treatment plan. PRN BENADRYL, VISTARIL were given during my shift. V/S remain WNL. RR=16, even and unlabored, lungs clear upon auscultation, abdomen soft and non- distended. Pt denies nausea, vomiting and diarrhea. COWS taken when pt. was alert during the night, LAST COWS=4 at 0400 , INTAKE= 855 ml, voided x2 , slept 9 hours. Safety measures in place : bed on lowest position with side rails x2 up for safety, call light within reach. Will continue to monitor closely and offer help.
--- NOTE | 2017-09-29 07:31 | NUR ---
Start of shift note; Received report from night nurse. Patient is a 22 year old male admitted on 09/25/17 for Opiate dependence. Patient was placed on a 5 day Subutex taper, no adverse reactions noted. NKA, on full code status and on a regular diet. Patient reported history of anxiety and depression. Patient is on fall and seizure precaution. Bed in lowest position, call light within reach. Will continue to monitor patient.
[2017-09-29 08:00] VITALS: BP 109/67
[2017-09-29] MEDS: BUPRENORPHINE HCL 2 MG TAB.SUBL SL SCH ×3 (08:15→20:23)
[2017-09-29] MEDS: BACLOFEN 20 MG TABLET PO SCH ×3 (08:15→20:22)
[2017-09-29] MEDS: GABAPENTIN 300 MG CAPSULE PO SCH ×3 (08:15→20:22)
[2017-09-29] MEDS: CLONIDINE HCL 0.1 MG TABLET PO SCH ×2 (08:15→15:16)
[2017-09-29] MEDS ORDERED: BUPRENORPHINE HCL 2 MG TAB.SUBL SL SCH (09:00)
--- NOTE | 2017-09-29 13:00 | NUR ---
Nurse Note; Pt refused 1200 vital signs, patient appears stable with respirations of 16 on room air. Educated pt regarding importance of obtaining vital signs for safety, verbalized understanding but continues to refuse. Will closely monitor patient.
[2017-09-29 16:00] VITALS: BP 110/68
--- NOTE | 2017-09-29 18:15 | NUR ---
End of shift note; Patient is AOX4. Patient is a 22 year old male admitted on 09/25/17 for Opiate dependence. Patient was placed on a 5 day Subutex taper, no adverse reactions noted. NKA, on full code status and on a regular diet. Patient reported history of anxiety and depression. Patient is on fall and seizure precaution. Bed in lowest position, call light within reach. Patient's last COWS score is 2. Patient remained compliant with treatment plan and medication regime. All safety measures secured. Met all needs.
[2017-09-29 20:00] VITALS: BP 142/67
--- NOTE | 2017-09-29 20:00 | NUR ---
Start of Shift Pt is a 22 year old male admitted for heroin dependence, placed on 5 day Subutex taper. Pt reports using Heroin IV 2-6g/daily and Marijuana 1-2g/daily. PMH: anxiety and depression. NKA, regular diet, fall precautions and full code. Upon assessment, pt is irritable, agitated, uncooperative and demanding in loud to of voice. Pt reports muscle cramps, skin flushed/clammy, respirations even/unlabored, denies SOB/chest pain, denies n/v/d, medications due. Safety measures in place, call light within reach, side rails up x2, bed locked and in low position. Will continue to monitor.
[2017-09-29] MEDS: DICYCLOMINE HCL 20 MG TABLET PO SCH (20:22)
[2017-09-29] MEDS: CLONIDINE HCL 0.2 MG TABLET PO SCH (20:23)
--- NOTE | 2017-09-29 20:25 | NUR ---
Behavioral Note While administering scheduled Subutex, pt began moving around, moving tongue around, stood up from bed and faced away from nurse. Pt asked by nurse to please face forward and sit back down on bed until medication dissolved. Pt became responded in agitated manner, "Ill stand up if I want to". COVERAGE SPECIALIST Pulping Machine Operator stood by pt door and asked him to calm down and respect nurse. Pt reminded to be respectful and cooperative. Pt sat on his bed, while nurse continued to monitor Subutex administration.
--- NOTE | 2017-09-30 04:00 | NUR ---
COWS deferred due to pt sleeping , to assess while pt is awake Pt refused to be woken up for 0400 VS Pt is sleeping, safety measures in place, will continue to monitor.
--- NOTE | 2017-09-30 07:05 | NUR ---
End of Shift Pt is a 22 year old male admitted for heroin dependence, placed on 5 day Subutex taper. Pt reports using Heroin IV 2-6g/daily and Marijuana 1-2g/daily. PMH: anxiety and depression. NKA, regular diet, fall precautions and full code. Upon assessment, pt was irritable, agitated, uncooperative and demanding in loud to of voice. Pt reports muscle cramps, skin flushed/clammy scheduled taper medications administered, COWS 4. During shift, while administering scheduled Subutex, pt began moving around, moving tongue around, stood up from bed and faced away from nurse. Pt asked by nurse to please face forward and sit back down on bed until medication dissolved. Pt became responded in agitated manner, Ill stand up if I want to. PIZZA HUT ASSISTANT Manager Speech stood by pt door and asked him to calm and respect nurse. Pt reminded to be respectful and cooperative. Pt sat on his bed, while nurse continued to monitor Subutex administration. No PRN medications administered. Pt slept for 6 hours, intake of 1350 ml PO, voids x1 and stool x0. Safety measures in place, call light within reach, side rails up x2, bed locked and in low position. Endorsed to day shift nurse.
--- NOTE | 2017-09-30 07:06 | NUR ---
Start of Shift Notes: Received patient in his room. Alert and verbally responsive. Oriented x 4. Able to make his needs known. Respirations even and unlabored. No SOB noted. Skin warm and dry to touch. Abdomen soft and non-distended. BS (+) in all 4 quadrants. No complains of N/V/D or constipation noted. Denies any abdominal discomfort noted. Bladder non-distended. Voids independently. Ambulatory ad nell with steady gait. Patient is a 22 year old male admitted for opiate and marijuana dependence who was placed on a 5-day Subutex taper as ordered. This is patient's last day of his taper. No adverse reactions noted. Prior to admission, patient was using 2-6grams of Heroin IV and 1-2 grams of Marijuana x 8 weeks. NKA. FULL CODE. Regular diet. On fall and seizure precautions. Educated patient on his current plan of care for the day and his medication regimen. Encouraged oral fluid intake and encouraged group participation to learn new skills to prevent relapse. Will continue to monitor.
[2017-09-30 08:00] VITALS: BP 111/70
--- NOTE | 2017-09-30 08:30 | NUR ---
ENDORSEMENT Pt endorsed to me by nurse. All information received. No distress noted at this time.
--- NOTE | 2017-09-30 08:30 | NUR ---
Transfer of Care: Transfer of care to receiving nurse at this time. All pertinent information discussed.
[2017-09-30] MEDS ORDERED: BUPRENORPHINE HCL 2 MG TAB.SUBL SL SCH (09:00)
[2017-09-30] MEDS: DICYCLOMINE HCL 20 MG TABLET PO SCH ×3 (09:16→21:58)
[2017-09-30] MEDS: BACLOFEN 20 MG TABLET PO SCH ×4 (09:16→21:58)
[2017-09-30] MEDS: CLONIDINE HCL 0.1 MG TABLET PO SCH ×2 (09:16→14:12)
[2017-09-30] MEDS: GABAPENTIN 300 MG CAPSULE PO SCH ×3 (09:17→21:58)
[2017-09-30] MEDS ORDERED: NAPROXEN 500 MG TABLET PO SCH (13:00)
--- NOTE | 2017-09-30 13:32 | NUR ---
NSG ENTRY Pt with episode of anxiety while medications were being given, in pt room. Pt was looking for an item, started tossing things around in room such as, lifting covers, clothes, pillows, etc. Pt hard to redirect. Pt not aggressive, but displaying erratic behavior. Medication was given and checked oral cavity. No distress noted at this time.
[2017-09-30 16:00] VITALS: BP 118/68
--- NOTE | 2017-09-30 18:18 | NUR ---
END OF SHIFT Pt 22 y/o male admitted for heroin dependence. Pt alert and oriented to name, place, and time. Perrla. Skin warm and dry to touch. Respirations even and unlabored. Bilateral hand tremors noted slightly. Pt observed mostly in dining room throughout the day. Pt with periods of agitation and irritability throughout the day. Pt is scheduled to be discharged tomorrow. Pt medication compliant and tolerated well. No ASE noted. Bed on lowest position with side rails x2 up for safety. Celestine l light within reach. No distress noted at this time.
[2017-09-30] MEDS ORDERED: DIPH50CA37 PO (19:25)
[2017-09-30] MEDS ORDERED: DICY20TA28 PO (19:25)
[2017-09-30] MEDS ORDERED: BACL20TA PO (19:25)
[2017-09-30] MEDS ORDERED: NAPR500T3 PO (19:25)
[2017-09-30] MEDS ORDERED: HYDR-3895 PO (19:25)
[2017-09-30] MEDS ORDERED: CLON0.1T14 PO (19:25)
[2017-09-30] MEDS ORDERED: GABA-534 PO (19:25)
[2017-09-30] MEDS ORDERED: CLON0.2T12 PO (19:25)
--- NOTE | 2017-09-30 20:00 | NUR ---
Start of Shift Received a 22 year old male admitted on 09/25/2017 for heroin dependence. PMH: anxiety and depression. Px has NKA, regular diet, fall precautions and full code. Px is to be D/C tomorrow 10/01/2017. During the rounds at 2000, No complaints made. Refused his VS. Safety measures in place, call light within reach, side rails up x2, bed locked and in low position. We'll continue to monitor.
[2017-09-30] MEDS: NAPROXEN 500 MG TABLET PO SCH (21:59)
[2017-09-30] MEDS: CLONIDINE HCL 0.2 MG TABLET PO SCH (22:10)
[2017-09-30] MEDS: HYDROXYZINE PAMOATE 25 MG CAPSULE PO PRN (22:10)
--- NOTE | 2017-09-30 22:10 | NUR ---
PRN meds Px reported heightened anxiety. Catapres 0.2 mg/tab, 1 tab given as standing order; Benadryl 50 mg/cap, 1 cap and Vistaril 25/cap, 2 caps given as PRN meds. We'll continue to monitor.
[2017-09-30] MEDS: diphenhydrAMINE 50 MG CAPSULE PO PRN (22:11)
[2017-10-01] VITALS: BP 106/55
--- NOTE | 2017-10-01 04:00 | NUR ---
COWS deferred COWS deferred due to the px is asleep. To assess if the px is awake per doctor's order. Respirations are even and unlabored. We'll continue to monitor.
--- NOTE | 2017-10-01 07:04 | NUR ---
End of Shift Notes 22 year old male admitted on 09/25/2017 for heroin dependence. PMH: anxiety and depression. Px has NKA, regular diet, fall precautions and full code. Px is to be D/C today 10/01/2017. During the shift, Refused his VS. At 2200, Px reported heightened anxiety. Catapres 0.2 mg/tab, 1 tab given as standing order; Benadryl 50 mg/cap, 1 cap and Vistaril 25/cap, 2 caps given as PRN meds. Oral intake of 2 L, voided 3x, No BM. Slept for 5.5 hours. Safety measures in place, call light within reach, side rails up x2, bed locked and in low position. We'll continue to monitor.
--- NOTE | 2017-10-01 07:30 | NUR ---
START OF SHIFT Pt 22 y/o male admitted for heroin dependence. Pt received in room on bed with eyes closed resting, but easily arousable to name.Pt alert and oriented to name, place, and time. Perrla. Skin warm and dry to touch. Respirations even and unlabored. Bilateral hand tremors noted slightly. It was reported that pt slept for 6 hours last night.Pt is scheduled to be discharged today.Bed on lowest position with side rails x2 up for safety. Celestine l light within reach. No distress noted at this time.
[2017-10-01 08:03] VITALS: BP 112/62
[2017-10-01 09:19] VITALS: BP 112/61
[2017-10-01] MEDS: DICYCLOMINE HCL 20 MG TABLET PO SCH (09:19)
[2017-10-01] MEDS: CLONIDINE HCL 0.1 MG TABLET PO SCH (09:19)
[2017-10-01] MEDS: BACLOFEN 20 MG TABLET PO SCH (09:19)
[2017-10-01] MEDS: NAPROXEN 500 MG TABLET PO SCH (09:19)
[2017-10-01] MEDS: HYDROXYZINE PAMOATE 25 MG CAPSULE PO PRN (09:20)
[2017-10-01] MEDS: GABAPENTIN 300 MG CAPSULE PO SCH (09:20)
--- NOTE | 2017-10-01 09:23 | NUR ---
PRN Pt states feels anxious. Vistaril po prn per MD order given and tolerated well.
--- NOTE | 2017-10-01 09:45 | NUR ---
DISCHARGE Pt 22 y/o male admitted for heroin dependence. Pt alert and oriented to name, place, and time. Perrla. Skin warm and dry to touch. Respirations even and unlabored. No hand tremors noted. Pt discharged to [place] via private transport. VS wnl. No belongings in cassette. All discharge papers, electronic prescriptions, and belongings in cabinet packed in pt bag. Pt denies any SI/ HI. No distress noted.
== END 2017-10-01 09:49 | disposition other institution (70) | DRG 895 ==
LOC: SRC 09-25 00:09
PROVIDERS: ADMIT Internal Medicine; ATTEND Internal Medicine
PROC: HZ2ZZZZ Detoxification Services for Substance Abuse Treatment (ICD-10-PCS; principal; 2017-09-25)
PROC: HZ31ZZZ Individual Counseling for Substance Abuse Treatment, Behavioral (ICD-10-PCS; 2017-09-27)
DX: F11.23 Opioid dependence with withdrawal (principal); F12.10 Cannabis abuse, uncomplicated; F17.210 Nicotine dependence, cigarettes, uncomplicated; Z59.0 Homelessness; F41.9 Anxiety disorder, unspecified; Z81.1 Family history of alcohol abuse and dependence; F15.21 Other stimulant dependence, in remission; F32.9 Major depressive disorder, single episode, unspecified; Z59.1 Inadequate housing
CPT/HCPCS: 36415; 80307; 80349; 80361; 83735; 85025; 86592; 86705; 86803; 87340; 87806; A4663; G0480; J2405; Q0162; Q0163

== ENCOUNTER 2017-11-09 12:44 | Inpatient (IN) | payer BC, OTHER ==
[~2017-11-09] VITALS: Ht 180.3 cm; Wt 59.0 kg
[~2017-11-09 12:44] MED LIST changes: +BACL20TA PO; +CLON0.1T14 PO; +CLON0.2T12 PO; +GABA-534 PO; -IBUP-1955 PO; -METH-406 PO; +NAPR500T4 PO
[2017-11-13 15:00] VITALS: BP 125/60
[2017-11-13] MEDS ORDERED: BUPRENORPHINE HCL 2 MG TAB.SUBL SL ONE (16:30)
[2017-11-13 16:55] VITALS: BP 107/65
[2017-11-13] MEDS: ONDANSETRON ODT 4 MG TAB.RAPDIS SL PRN ×2 (16:55→17:58)
[2017-11-13 17:04] LABS: *AMPHETAMINE, URINE POSITIVE (NEGATIVE); *BARBITURATE, URINE NEGATIVE (NEGATIVE); *CANNABINOID, URINE POSITIVE (NEGATIVE); *COCCAINE, URINE NEGATIVE (NEGATIVE); *OPIATE, URINE POSITIVE (NEGATIVE); *PHENCYCLIDINE SCREEN,URINE NEGATIVE (NEGATIVE)
[2017-11-13] MEDS ORDERED: MAGNESIUM HYDROXIDE 30 ML LIQUID UDC PO PRN (17:15)
[2017-11-13] MEDS ORDERED: MIRALAX 17 GM POWD.PACK PO PRN (17:15)
[2017-11-13] MEDS ORDERED: DICYCLOMINE HCL 20 MG TABLET PO PRN (17:15)
[2017-11-13] MEDS ORDERED: BUPRENORPHINE HCL 2 MG TAB.SUBL SL PRN (17:15)
[2017-11-13] MEDS ORDERED: CLONIDINE HCL 0.1 MG TABLET PO PRN (17:15)
[2017-11-13] MEDS ORDERED: ONDANSETRON ODT 4 MG TAB.RAPDIS SL PRN (17:15)
[2017-11-13] MEDS ORDERED: ACETAMINOPHEN 325 MG TABLET PO PRN (17:15)
[2017-11-13] MEDS ORDERED: LOPERAMIDE HCL 2 MG CAPSULE PO PRN ×2 (17:15)
[2017-11-13] MEDS ORDERED: MAG HYDROX/AL HYDROX/SIMETH 30 ML LIQUID UDC PO PRN (17:15)
[2017-11-13] MEDS ORDERED: diphenhydrAMINE 50 MG CAPSULE PO PRN (17:15)
[2017-11-13] MEDS ORDERED: ONDANSETRON 4 MG/2 ML VIAL IM PRN (17:15)
[2017-11-13] MEDS: HYDROXYZINE PAMOATE 25 MG CAPSULE PO PRN (18:47)
[2017-11-13] MEDS: METHOCARBAMOL 750 MG TABLET PO PRN ×2 (18:47→20:18)
[2017-11-13 20:00] VITALS: BP 124/67
[2017-11-14 04:00] VITALS: BP 100/50
[2017-11-14] MEDS: BACLOFEN 20 MG TABLET PO PRN ×2 (05:08→12:22)
[2017-11-14] MEDS: METHOCARBAMOL 750 MG TABLET PO PRN (05:08)
[2017-11-14] MEDS: IBUPROFEN 600 MG TABLET PO PRN ×2 (05:08→12:22)
[2017-11-14] MEDS: HYDROXYZINE PAMOATE 25 MG CAPSULE PO PRN ×2 (05:08→12:21)
[2017-11-14] MEDS: GABAPENTIN 300 MG CAPSULE PO SCH ×4 (08:17→17:00)
[2017-11-14] MEDS: DOCUSATE SODIUM 250 MG CAPSULE PO SCH (08:17)
[2017-11-14] MEDS: MULTIVITAMINS,THERAPEUTIC TABLET PO SCH (08:17)
[2017-11-14] MEDS: BUPRENORPHINE HCL 2 MG TAB.SUBL SL SCH ×4 (08:17→20:55)
[2017-11-14 08:20] VITALS: BP 104/60
[2017-11-14] MEDS ORDERED: 5 DAY TAPER BUPRENORPHINE -SERENITY PROTOCOL SL PRN (09:00)
[2017-11-14] MEDS ORDERED: TUBERCULIN,PURIF.PROT.DERIV. 5 TU/0.1 ML TEST ID ONE (09:00)
[2017-11-14 12:15] VITALS: BP 114/62
[2017-11-14 16:00] VITALS: BP 111/49
[2017-11-14 16:10] VITALS: BP 108/56
[2017-11-14 20:00] VITALS: BP 102/54
[2017-11-14] MEDS ORDERED: GABAPENTIN 300 MG CAPSULE PO SCH (21:00)
[2017-11-15] VITALS: BP 111/56
[2017-11-15 04:00] VITALS: BP 102/51
[2017-11-15] MEDS: HYDROXYZINE PAMOATE 25 MG CAPSULE PO PRN (06:52)
[2017-11-15] MEDS: METHOCARBAMOL 750 MG TABLET PO PRN ×3 (06:52→22:08)
[2017-11-15] MEDS: MULTIVITAMINS,THERAPEUTIC TABLET PO SCH (07:53)
[2017-11-15] MEDS: GABAPENTIN 300 MG CAPSULE PO SCH ×6 (07:53→21:57)
[2017-11-15] MEDS: BACLOFEN 20 MG TABLET PO PRN (07:53)
[2017-11-15] MEDS: DOCUSATE SODIUM 250 MG CAPSULE PO SCH (07:54)
[2017-11-15] MEDS: BUPRENORPHINE HCL 2 MG TAB.SUBL SL SCH ×3 (07:57→21:57)
[2017-11-15 08:06] VITALS: BP 119/72
[2017-11-15] MEDS ORDERED: BUPRENORPHINE HCL 2 MG TAB.SUBL SL ONE (12:00)
[2017-11-15] MEDS: IBUPROFEN 600 MG TABLET PO PRN ×2 (12:03→22:08)
[2017-11-15 12:42] VITALS: BP 132/91
[2017-11-15] MEDS ORDERED: KETOROLAC TROMETHAMINE 30 MG INJ IM PRN (13:15)
[2017-11-15] MEDS: BACLOFEN 10 MG TABLET PO SCH ×2 (15:05→21:57)
[2017-11-15] MEDS: DICYCLOMINE HCL 20 MG TABLET PO SCH ×2 (15:09→21:57)
[2017-11-15 16:16] VITALS: BP 113/63
[2017-11-15 20:00] VITALS: BP_SYST 110; BP_SYST 96; BP_DIAS 45; BP_DIAS 63
[2017-11-15] MEDS: CLONIDINE HCL 0.1 MG TABLET PO SCH (21:00)
[2017-11-16] VITALS: BP 103/44
[2017-11-16 04:00] VITALS: BP 101/48
[2017-11-16 08:55] VITALS: BP 120/73
[2017-11-16] MEDS: MULTIVITAMINS,THERAPEUTIC TABLET PO SCH ×2 (09:00→09:12)
[2017-11-16] MEDS ORDERED: BUPRENORPHINE HCL 2 MG TAB.SUBL SL SCH (09:00)
[2017-11-16] MEDS: GABAPENTIN 300 MG CAPSULE PO SCH ×3 (09:12→21:15)
[2017-11-16] MEDS: DOCUSATE SODIUM 250 MG CAPSULE PO SCH (09:12)
[2017-11-16] MEDS: BACLOFEN 10 MG TABLET PO SCH (09:12)
[2017-11-16] MEDS: DICYCLOMINE HCL 20 MG TABLET PO SCH ×3 (09:12→21:16)
[2017-11-16] MEDS: CLONIDINE HCL 0.1 MG TABLET PO SCH ×3 (09:13→21:16)
[2017-11-16 12:15] VITALS: BP 104/56
[2017-11-16] MEDS: BACLOFEN 20 MG TABLET PO SCH ×2 (14:06→21:16)
[2017-11-16] MEDS: BUPRENORPHINE HCL 2 MG TAB.SUBL SL SCH ×2 (14:07→21:15)
[2017-11-16 16:46] VITALS: BP 114/55
[2017-11-16 20:00] VITALS: BP 103/56
[2017-11-17] VITALS: BP 94/48
[2017-11-17 04:00] VITALS: BP 105/56
[2017-11-17 08:25] VITALS: BP 114/52
[2017-11-17] MEDS: BUPRENORPHINE HCL 2 MG TAB.SUBL SL SCH ×3 (09:34→20:52)
[2017-11-17] MEDS: GABAPENTIN 300 MG CAPSULE PO SCH ×4 (09:34→20:52)
[2017-11-17] MEDS: BACLOFEN 20 MG TABLET PO SCH ×3 (09:35→20:52)
[2017-11-17] MEDS: DICYCLOMINE HCL 20 MG TABLET PO SCH ×3 (09:35→20:52)
[2017-11-17] MEDS: CLONIDINE HCL 0.1 MG TABLET PO SCH ×3 (09:35→20:52)
[2017-11-17] MEDS: MULTIVITAMINS,THERAPEUTIC TABLET PO SCH (09:37)
[2017-11-17] MEDS: METHOCARBAMOL 750 MG TABLET PO PRN ×2 (09:42→18:31)
[2017-11-17] MEDS ORDERED: BISACODYL 10 MG SUPP.RECT RC PRN (12:00)
[2017-11-17] MEDS ORDERED: BISACODYL 5 MG TABLET.DR PO PRN (12:00)
[2017-11-17] MEDS ORDERED: MIRALAX 17 GM POWD.PACK PO ONE (12:00)
[2017-11-17] MEDS ORDERED: METHYL SALICYLATE/MENTHOL CREAM 28 GM TUBE TOP PRN (12:00)
[2017-11-17 12:33] VITALS: BP 111/53
[2017-11-17] MEDS: DOCUSATE SODIUM 250 MG CAPSULE PO SCH (12:51)
[2017-11-17] MEDS ORDERED: NAPROXEN 500 MG TABLET PO SCH (13:00)
[2017-11-17] MEDS: ACETAMINOPHEN 325 MG TABLET PO SCH ×2 (15:26→20:52)
[2017-11-17 16:57] VITALS: BP 106/55
[2017-11-17] MEDS: HYDROXYZINE PAMOATE 25 MG CAPSULE PO PRN (18:31)
[2017-11-17 20:00] VITALS: BP 118/64
[2017-11-17] MEDS: NAPROXEN 500 MG TABLET PO SCH (20:52)
[2017-11-17] MEDS: ONDANSETRON ODT 4 MG TAB.RAPDIS SL PRN (21:01)
[2017-11-18] VITALS: BP 103/57
[2017-11-18 04:00] VITALS: BP 108/59
[2017-11-18 08:07] VITALS: BP 104/47
[2017-11-18] MEDS: CLONIDINE HCL 0.1 MG TABLET PO SCH ×3 (08:09→21:00)
[2017-11-18] MEDS ORDERED: BUPRENORPHINE HCL 2 MG TAB.SUBL SL SCH (09:00)
[2017-11-18] MEDS: NAPROXEN 500 MG TABLET PO SCH ×2 (09:19→21:24)
[2017-11-18] MEDS: MULTIVITAMINS,THERAPEUTIC TABLET PO SCH (09:19)
[2017-11-18] MEDS: BACLOFEN 20 MG TABLET PO SCH ×3 (09:20→21:24)
[2017-11-18] MEDS: FAMOTIDINE 20 MG TABLET PO SCH (09:20)
[2017-11-18] MEDS: DOCUSATE SODIUM 250 MG CAPSULE PO SCH (09:20)
[2017-11-18] MEDS: GABAPENTIN 300 MG CAPSULE PO SCH ×4 (09:20→21:24)
[2017-11-18] MEDS: ACETAMINOPHEN 325 MG TABLET PO SCH ×3 (09:20→21:24)
[2017-11-18] MEDS: DICYCLOMINE HCL 20 MG TABLET PO SCH ×3 (09:20→21:24)
[2017-11-18 12:25] VITALS: BP 110/49
[2017-11-18 16:43] VITALS: BP 119/48
[2017-11-18] MEDS ORDERED: DICY20TA28 PO (17:33)
[2017-11-18] MEDS ORDERED: HYDR-3895 PO (17:33)
[2017-11-18] MEDS ORDERED: NAPR500T4 PO (17:33)
[2017-11-18] MEDS ORDERED: DIPH50CA37 PO (17:33)
[2017-11-18] MEDS ORDERED: GABA-534 PO (17:33)
[2017-11-18] MEDS ORDERED: CLON0.1T14 PO (17:33)
[2017-11-18] MEDS ORDERED: BACL20TA PO (17:33)
[2017-11-18 20:00] VITALS: BP 112/47
[2017-11-19 08:00] VITALS: BP 100/62
[2017-11-19] MEDS: GABAPENTIN 300 MG CAPSULE PO SCH (08:16)
[2017-11-19] MEDS: ACETAMINOPHEN 325 MG TABLET PO SCH (08:16)
[2017-11-19 08:17] VITALS: BP 100/60
[2017-11-19] MEDS: BACLOFEN 20 MG TABLET PO SCH (08:17)
[2017-11-19] MEDS: CLONIDINE HCL 0.1 MG TABLET PO SCH (08:17)
[2017-11-19] MEDS: FAMOTIDINE 20 MG TABLET PO SCH (08:17)
[2017-11-19] MEDS: NAPROXEN 500 MG TABLET PO SCH (08:17)
[2017-11-19] MEDS: DICYCLOMINE HCL 20 MG TABLET PO SCH (08:17)
[2017-11-19] MEDS: DOCUSATE SODIUM 250 MG CAPSULE PO SCH (08:18)
[2017-11-19] MEDS: MULTIVITAMINS,THERAPEUTIC TABLET PO SCH (08:18)
== END 2017-11-19 09:37 | disposition other institution (70) | DRG 895 ==
LOC: SRC 11-13 14:47
PROVIDERS: ADMIT Internal Medicine; ATTEND Internal Medicine
PROC: HZ2ZZZZ Detoxification Services for Substance Abuse Treatment (ICD-10-PCS; principal; 2017-11-13)
PROC: HZ31ZZZ Individual Counseling for Substance Abuse Treatment, Behavioral (ICD-10-PCS; 2017-11-16)
PROC: HZ41ZZZ Group Counseling for Substance Abuse Treatment, Behavioral (ICD-10-PCS; 2017-11-18)
DX: F11.23 Opioid dependence with withdrawal (principal); F12.20 Cannabis dependence, uncomplicated; T40.1X1A Poisoning by heroin, accidental (unintentional), initial encounter; F17.210 Nicotine dependence, cigarettes, uncomplicated; F41.9 Anxiety disorder, unspecified; Z59.0 Homelessness; F32.9 Major depressive disorder, single episode, unspecified; K59.03 Drug induced constipation; Y92.89 Other specified places as the place of occurrence of the external cause; Z59.1 Inadequate housing
CPT/HCPCS: 70030-TC; 80307; 80324; 80349; 80361; J2405; Q0162; Q0163